=== PATIENT | female | born 1980 | race Hispanic/Latino ===

== ENCOUNTER 2016-09-22 06:44 | Day surgery (SDC) | payer MEDICAID ==
--- NOTE | 2016-09-22 07:52 | Anesthesia Consultation ---
Anesthesia Consult and Med Hx Date of service: 09/22/16 - Airway Anesthetic Teeth Evaluation: Poor ROM Head & Neck: Adequate Mental/Hyoid Distance: Adequate Mallampati Class: Class II Intubation Access Assessment: Probably Good - Pulmonary Exam CTA: Yes - Cardiac Exam Cardiac Exam: RRR - Pre-Operative Health Status ASA Pre-Surgery Classification: ASA3 Proposed Anesthetic Plan: MAC - Pulmonary Hx Smoking: Yes (FORMER, QUIT 4 YRS (1/2 PPD)) Hx Asthma: Yes (SEASONAL DUE TO COLD WEATHER, ) Hx Sleep Apnea: Yes (CPAP) - Cardiovascular System Hx Hypertension: No Hx Heart Attack/AMI: No - Central Nervous System Hx Neuromuscular Disorder: No (DECREASE CERVICAL ROTATION) Hx Seizures: No CVA: No Hx Psychiatric Problems: Yes (ANXIETY) - Endocrine Hx Renal Disease: No Hx Liver Disease: No Hx Insulin Dependent Diabetes: No (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
--- NOTE | 2016-09-22 07:52 | Anesthesia Day of Surgery ---
Anesthesia Day of Surgery - Day of Surgery Patient Examined: Yes Patient H&P Reviewed: Yes Patient is NPO: Yes
[2016-09-22] MEDS ORDERED: DIPRIVAN 10 MG/ML IV ONE (07:55)
[2016-09-22] MEDS ORDERED: NACL 0.9% 1000 ML 1,000 ML IV SCH (08:00)
--- NOTE | 2016-09-22 09:28 | Discharge Summary ---
Providers - Providers Date of discharge: 09/22/16 Attending physician: NICHOLE MONTELONGO Primary care physician: [facility] Hospitalization Reason for admission: outpatient EGD Condition: Stable Procedures: EGD Disposition: - TO HOME OR SELFCARE Core Measure Documentation - Palliative Care Palliative Care/ Comfort Measures: Not Applicable - Core Measures Any of the following diagnoses?: none Exam - Physical Exam Narrative exam: unchanged from preop - Constitutional Vitals: Temp Pulse Resp BP Pulse Ox 98.2 F 75 17 127/66 99 09/22/16 08:09 09/22/16 08:09 09/22/16 08:09 09/22/16 08:09 09/22/16 08:09 Plan Activity: advance as tolerated Diet: low carbohydrate Follow up with: PRIMARY CAREMD [Primary Care Provider] - 7 Days
[2016-09-22] MEDS ORDERED: XYLOCAINE MPF 2% ONE ×2 (09:30→10:13)
--- NOTE | 2016-09-22 09:37 | Operative Report ---
Operative Report Operative Report: OPERATIVE REPORT - EGD DATE 09/22/2016 SURGERY: Upper endoscopy. SURGEON: Danny Wolf M.D. PLANISHER: Noah Gusman MD PRE OP DX: Dyspepsia POST OP DX: Hiatal Hernia TYPE OF ANESTHESIA: MAC. ESTIMATED BLOOD LOSS: None. COMPLICATIONS: None. SPECIMENS REMOVED: None. FINDINGS: 1. Hiatal hernia. 2. Otherwise, normal esophagus, stomach and first portion of duodenum. INDICATIONS:INDICATION FOR PROCEDURE: Patient is a 36-year-old female with a long history of morbid obesity. She is planned to have a weight loss procedure and is here for preoperative planning EGD. PROCEDURE DETAILS: After consent was reviewed, patient was taken back to the operating room where patient was placed in the left lateral decubitus position and a bite block was placed in the mouth. After a time-out was called, MAC anesthesia was initiated. I then passed the endoscope into her oropharynx, into her esophagus, visualized the entire esophagus, which was all within normal limits. I then visualized the stomach and the first portion of the duodenum and there were no abnormalities I could clearly visualize. I then retroflexed the scope in the stomach and visualized the hiatus and I could see a hiatal hernia. I then desufflated the stomach and removed the endoscope. Patient tolerated procedure well and was transferred to recovery room in good and stable condition.
--- NOTE | 2016-09-22 10:01 | Post Anesthesia Evaluation ---
- Post Anesthesia Evaluation Patient Participated: Yes Airway Patent: Yes Stable Respiratory Function: Yes Nausea/Vomiting: No Temp > 96.8F: Yes Pain Manageable: Yes Adequeate Hydration: Yes Anesthesia Complications: No
[2016-09-22 10:05] VITALS: BP 114/48
== END 2016-09-22 06:45 | disposition home or self-care (01) ==
LOC: GIO 06:44
PROVIDERS: ATTEND Specialist
DX: K44.9 Diaphragmatic hernia without obstruction or gangrene (principal); G47.30 Sleep apnea, unspecified; F41.9 Anxiety disorder, unspecified; K21.9 Gastro-esophageal reflux disease without esophagitis; E78.00 Pure hypercholesterolemia, unspecified; F31.30 Bipolar disorder, current episode depressed, mild or moderate severity, unspecified; E66.01 Morbid (severe) obesity due to excess calories; Z68.41 Body mass index [BMI] 40.0-44.9, adult; Z87.01 Personal history of pneumonia (recurrent); Z87.891 Personal history of nicotine dependence; Z98.890 Other specified postprocedural states; Z82.49 Family history of ischemic heart disease and other diseases of the circulatory system; Z80.9 Family history of malignant neoplasm, unspecified
CPT/HCPCS: 43235; 81025; J2704; J7030